=== PATIENT | female | born 2000 | race Caucasian/White ===

== ENCOUNTER 2024-10-15 17:50 | Emergency (ER) | payer OTHER ==
[~2024-10-15] VITALS: Ht 172.7 cm; Wt 79.4 kg
[2024-10-15 18:48] LABS: BASOPHILS # (AUTO) 0.1 K/UL (0.0-0.2); BASOPHILS % (AUTO) 0.6 % (0.0-2.0); EOSINOPHILS # (AUTO) 0.3 K/uL (0.0-0.7); EOSINOPHILS % (AUTO) 2.3 % (0.0-7.0); HEMATOCRIT 46.8 % (31.2-41.9); HEMOGLOBIN 15.6 g/dL (10.9-14.3); LYMPHOCYTES # (AUTO) 3.8 K/uL (0.8-4.8); LYMPHOCYTES % (AUTO) 27.1 % (20.5-51.5); MEAN CORPUSCULAR HEMOGLOBIN 29.2 uug (24.7-32.8); MEAN CORPUSCULAR HGB CONC 33 g/dL (32.3-35.6); MEAN CORPUSCULAR VOLUME 87.4 fL (75.5-95.3); NEUTROPHILS # (AUTO) 8.9 K/uL (1.8-8.9); PLATELET COUNT (AUTO) 243 K/uL (179-408); RED BLOOD CELL COUNT(AUTO) 5.36 MIL/uL (3.63-4.92); RED CELL DISTRIBUTION WIDTH 12.4 % (12.3-17.7); WHITE BLOOD COUNT (AUTO) 14.2 K/uL (3.8-11.8)
[2024-10-15 18:52] LABS: DIFFERENTIAL COMMENT 1
[2024-10-15 18:55] LABS: CALCIUM 9.7 mg/dL (8.5-10.1); CREATININE 0.9 mg/dL (0.6-1.3); POTASSIUM 3.8 mmol/L (3.5-5.1)
[2024-10-15] MEDS ORDERED: METOCLOPRAMIDE HCL 10 MG TABLET ONE (19:17)
[2024-10-15] MEDS ORDERED: METO-295 PO (19:17)
[2024-10-15] MEDS: METOCLOPRAMIDE HCL 10 MG TABLET PO ONE (19:23)
[2024-10-15 19:27] VITALS: BP 118/77; O2SAT 99
== END 2024-10-15 19:27 | disposition home or self-care (01) ==
LOC: ER 17:55
DX: S06.0X0A Concussion without loss of consciousness, initial encounter (principal); S16.1XXA Strain of muscle, fascia and tendon at neck level, initial encounter; S05.12XA Contusion of eyeball and orbital tissues, left eye, initial encounter; R11.0 Nausea; R55 Syncope and collapse; R03.1 Nonspecific low blood-pressure reading; W22.8XXA Striking against or struck by other objects, initial encounter; Y93.89 Activity, other specified; Y92.89 Other specified places as the place of occurrence of the external cause; Y99.8 Other external cause status
CPT/HCPCS: 36415; 70450; 70486; 85025; A4606; A4663; J8597